=== PATIENT | female | born 1995 | race Caucasian/White ===

== ENCOUNTER 2024-03-01 11:40 | Inpatient (IN) | payer OTHER ==
[2024-03-01] VITALS (10 sets, daily range): BP systolic 96–133; BP diastolic 49–82
[~2024-03-01] VITALS: Ht 157.5 cm; Wt 92.5 kg
--- NOTE | ~2024-03-01 | DS ---
[facility] [address] [place], [place] [address] Draft ADMISSION DATE: 03/01/2024 DISCHARGE DATE: 03/06/2024 ADMISSION DIAGNOSES: Bilateral pyelonephritis, renal dysfunction, anemia, nausea, vomiting, gestational diabetes, intrauterine at 30 weeks 6 days. The patient is a 28-year-old female 1, para 0, who was admitted at 30 weeks of with general malaise and tachycardia. She was found to have acute pyelonephritis, bilateral possible left renal abscess as well as significant kidney dysfunction. Urine was consistent with pyelonephritis and she was begun on broad-spectrum antibiotics. Her white count was initially extremely high at 22,000 with a left shift. She spiked temperatures for the 1st 36 hours and vancomycin was added. She subsequently defervesced. Her pain continued to decrease overtime. She was switched to IV ceftriaxone after the final results on the urine culture came back, which was pansensitive E coli. She was initially found to have an elevated creatinine on her admission with a creatinine of 1.74, which is quite elevated for . Her lactic acid was normal and there was no evidence of sepsis. She continued to improve overtime and is discharged today on oral therapy. Her renal dysfunction improved since her admission. She was found to have a baseline creatinine of 0.99 two years ago found on old labs. She increased to a maximum of 1.83 and is now 1.59. Anemia which is stable. This is probably related to a combination of iron deficiency as well as chronic kidney disease. The patient was initially very dehydrated with nausea, vomiting, and tolerating p.o. well. It was felt this was also contributing to her pyelo as well as her tachycardia. The nausea and vomiting improved as she continued to improve otherwise. She is on Reglan q.i.d. She does have a history of insulin-dependent gestational diabetes. Her sugars in the hospital were reasonable, but she has only recently begun eating again. She had been on insulin NPH 6 units at bedtime prior to admit. This will likely need to be restarted, but this will depend on her diet. She has an IUP at 30 weeks 6 days without signs of compromise or labor. PLAN: Discharge home to complete another nine days of antibiotics, Keflex 500 mg q.i.d. for nine days and Keflex 500 mg at bedtime for the remainder of her . Check sugars q.i.d. Call for temperature greater than 100.4, worsening pain, recurrent nausea, vomiting, unresponsive to medications. Push p.o. fluids. Follow up in the office within the next week. PATIENT NAME: KYMBERLY BELTRAN DISCHARGE SUMMARY DATE OF : 95 REPORT #: [id number] PHYSICIAN: SHONDA WHITFIELD MD PCP: NO PRIMARY CARE PHYSICIAN REPORT IS CONFIDENTIAL AND NOT TO BE RELEASED WITHOUT AUTHORIZATION [facility] [address] [place], [place] [address] Draft Shonda Whitfield MD PJArden/MODL /[id number] Copies: ~ PATIENT NAME: KYMBERLY BELTRAN DISCHARGE SUMMARY DATE OF : 95 REPORT #: [id number] PHYSICIAN: SHONDA WHITFIELD MD PCP: NO PRIMARY CARE PHYSICIAN REPORT IS CONFIDENTIAL AND NOT TO BE RELEASED WITHOUT AUTHORIZATION
--- OUTSIDE RECORDS SUMMARY | ~2024-03-01 | XMS | Continuity of Care Document ---
Demographics + + + | Address | [address] | | | [place] [address] | + + + | Preferred Language | Unknown | + + + | Marital Status | unknown | + + + | Buddhist Affiliation | Unknown | + + + | Race | White | + + + | Ethnic Group | Not or | + + + Author + + + | Author | [facility] | + + + | Organization | [facility] | + + + | Address | [address] | | | [place] [address] | + + + | Phone | | + + + Care Team Providers + + + + | Care Inside Sales Manager Name | Role | Phone | + + + + Unavailable | Unavailable | + + + + Unavailable | Unavailable | + + + + Allergies No information. Encounters No information. Functional Status No information. Immunizations No information. Medications No information. Problems + + + + | date | description | facility | + + + + | 2023-12-22 00:00 | abnormal findings on | [facility] | | | screening of | [facility] | | | mother (disorder) | | + + + + | 2023-12-22 00:00 | Abnormal findings on | [facility] | | | screening | [facility] | + + + + Procedures No information. Results/Labs No information. Social History + + + + | date | description | facility | + + + + | 2024-01-05 00:00 | Tobacco smoking | [facility] | | | consumption unknown | [facility] | + + + + Vital Signs + + +---------+---------+ | date | measurement | value | units | + + +---------+---------+ | 2023-12-15 00:00 | BP_diastolic | 57 | mmHg | + + +---------+---------+ | 2023-12-15 00:00 | BP_systolic | 118 | mmHg | + + +---------+---------+ | 2023-12-15 00:00 | heart_rate | 66 | /min | + + +---------+---------+ | 2023-12-15 00:00 | o2_saturation | 99 | % | + + +---------+---------+ | 2023-12-15 00:00 | temperature_metric | 36.56 | C | | | | | | + + +---------+---------+ | 2023-12-15 00:00 | | 97.81 | F | | | temperature_standar | | | | | d | | | + + +---------+---------+ | 2023-12-15 00:00 | weight_metric | 96.84 | kg | + + +---------+---------+ | 2023-12-15 00:00 | weight_standard | 213.5 | lb | + + +---------+---------+"
[2024-03-01] MEDS ORDERED: METOCLOPRAMIDE HCL 10 MG/2 ML SDV IV ONE (12:00)
[2024-03-01 12:20] LABS: BASOPHILS 0.2 % (0-2); HEMOGLOBIN 10.7 g/dL (12.0-18.0); LYMPHOCYTES 4.9 % (24-44); MCH 27.5 (27-36); MCHC 34.4 g/dl (30-36); MONOCYTES 3.9 % (0-12); PLATELET COUNT 643 K/uL (140-440); RBC 3.88 M/ul (4.3-5.7); RDW 13.6 (10.5-15.0)
[2024-03-01] MEDS ORDERED: LACTATED RINGER'S 1,000 ML IV ONE (12:30)
[2024-03-01 12:37] LABS: ALBUMIN 1.5 g/dL (3.4-5.0); ALBUMIN/GLOBULIN RATIO 0.27 (1.1-2.4); ANION GAP 17.7 (7-21); BILIRUBIN, TOTAL 1.3 ng/dL (0.2-1.0); BUN/CREATININE RATIO 6.89 (6.0-28.6); CALCIUM 8.6 mg/dL (8.5-10.1); CREATININE, SERUM 1.74 mg/dL (0.55-1.02); POTASSIUM 2.7 mmol/L (3.5-5.1); PROTEIN, TOTAL 7.1 g/dL (6.4-8.2)
[2024-03-01 12:52] LABS: BILIRUBIN, URINE POSITIVE (negative); BLOOD/HGB, URINE SMALL (Negative); KETONE, URINE NEGATIVE (Negative); LEUK ESTERASE, URINE MODERATE (negative); NITRITE, URINE NEGATIVE (negative)
[2024-03-01 12:59] LABS: BACTERIA, URINE 2+ /hpf (negative); CASTS, URINE GRANULAR 1+ \\lpf; COLLECTION TYPE, URINE CLEAN CATCH; CRYSTALS, URINE NONE SEEN (0-1+); EPITHELIAL CELLS, URINE SQUAMOUS 1+ /lpf (0-1+); REFLEX CULTURE, URINE Yes (No); WHITE BLOOD CELLS, URINE >50 /HPF (0-5)
[2024-03-01] MEDS ORDERED: POTASSIUM CHLORIDE 20 MEQ,LIDOCAINE HCL 1% 20 MG in DEXTROSE 5% 250 ML IV ONE (13:00)
[2024-03-01] MEDS ORDERED: PIPERACILLIN/TAZOBACTAM 3.375 GM in DEXTROSE 5% 100 ML IV SCH (13:15)
[2024-03-01] MEDS ORDERED: ondansetron HCL 4 MG/2 ML VIAL IV PRN (14:00)
[2024-03-01] MEDS ORDERED: LACTATED RINGER'S 1,000 ML IV SCH (14:00)
[2024-03-01] MEDS ORDERED: PIPERACILLIN/TAZOBACTAM 2.25 GM in DEXTROSE 5% 100 ML IV SCH (14:00)
[2024-03-01] MEDS ORDERED: ACETAMINOPHEN 500 MG TAB PO PRN (14:00)
[2024-03-01 15:31] LABS: INFLUENZA B NAA NEGATIVE (NEGATIVE); RESPIRATORY SYNCYTIAL VIR NAA NEGATIVE (NEGATIVE)
[2024-03-01] MEDS ORDERED: POTASSIUM CHLORIDE 40 MEQ,LIDOCAINE HCL 1% 40 MG in DEXTROSE 5% 250 ML IV ONE (16:15)
[2024-03-01] MEDS ORDERED: POTASSIUM CHLORIDE 10 MEQ TABCR PO ONE (16:15)
--- NOTE | 2024-03-01 16:51 | NUR ---
PATIENT ADMITTED TO CCU AROUND 1515 FROM [facility] FOR PYELONEPHRITIS. PATIENT IS 30 WEEKS AND HAS BEEN HAVING COLD SYMPTOMS FOR 1-2 WEEKS NOW, WITH A COUGH, FEVER, CHILLS, LETHARGY, DIARHHEA AND VOMITING AT HOME. PT REPORTS STILL FEELING NORMAL MOVEMENT. PT TO HAVE NST Q SHIFT PER [facility] RNs. HR IN THE 120-150s, ESPECIALLY WITH ACTIVITY. PT HAS RECEIVED 2 L BOLUS AND HAS RECEIVED ZOSYN FOR AN ANTIBIOTIC. PT STILL HAVING NOTICEABLE COUGH. PT'S LYUBOV IN ROOM AND ATTENTIVE TO PATIENT. IVF STARTED AT 100 ML/HR. COVID SWAB NEG. PATIENT ORIENTED TO ROOM AND PLAN OF CARE. PT NOW RECEIVING IV POTASSIUM, IN ADDITION TO TAKING MORE ORAL POTASSIUM. WILL CONTINUE TO MONITOR.
[2024-03-01] MEDS ORDERED: ONDANSETRON ODT8 MG SL (16:54)
[2024-03-01] MEDS ORDERED: HUMULIN N100 UNIT/1 SUB-Q (16:55)
[2024-03-01] MEDS ORDERED: IBLOOD GLUCOSE TEST STRIP 1 EA TEST VI SCH (17:00)
[2024-03-01] MEDS ORDERED: INSULIN LISPRO 100 UNIT/ML ML SUB-Q SCH (17:00)
--- NOTE | 2024-03-01 18:00 | NUR ---
PATIENT TRIED ONE BITE OF HER DINNER AND ALMOST IMMEDIATELY STARTED TO VOMIT. PT'S HEART RATE UP TO THE 170 s WITH VOMITING. EMESIS =200 MLs. PT GIVEN ZOFRAN PRN. PT'S MOTHER AND REMAIN IN ROOM. IV FLUIDS CONTINUE AND IV POTASSIUM. AM LABS ORDERED.
--- NOTE | 2024-03-01 19:48 | NUR ---
IN TO CHECK ON PT AND GO OVER PLAN OF CARE FOR THE NIGHT INCLUDING NST WITH [facility] NURSE, IVF AND RECHECKING LABS IN AM. PT WILL CALL WITH ANY NEEDS, IS SIPPING ON A SMOOTHIE NOW AND DENIES NAUSEA/VOMITING. RESTING HR 130'S. SPO2 98% ON ROOM AIR.
--- NOTE | 2024-03-01 20:20 | NUR ---
IV ABX infusing WNL. Patient temp 99.2. Resting in bed, requests assistance with side lying position, pillows provided. Pt states no further needs, call light in reach.
[2024-03-01] MEDS ORDERED: MELATONIN 3 MG TAB PO PRN (21:00)
--- NOTE | 2024-03-01 21:20 | NUR ---
PT CALLS TO USE BATHROOM, SBA UP TO BATHROOM, HR UP TO 160'S, PT DENIES LIGHTHEADEDNESS OR DIZZINESS, STEADY ON FEET. WAS ABLE TO VOID THEN BACK TO BED. BLOOD SUGAR CHECKED IS 121. [facility] NURSES IN TO DO NST.
--- NOTE | 2024-03-01 21:55 | NUR ---
VS TAKEN PT WARM TO TOUCH, AXIALLARY TEMP 101.4. WILL GIVE PRN TYLENOL.
--- NOTE | 2024-03-01 23:23 | NUR ---
DR SOUSA CALLED AND UPDATED ON PTS BPS 96/52 (65). ORDER GIVEN FOR 1L LR BOLUS.
--- NOTE | 2024-03-01 23:28 | NUR ---
LR BOLUS STARTED, PT DENIES NEEDS. AWAKE IN BED, WATCHING TV. RESTING HR 120'S.
[2024-03-02] VITALS (19 sets, daily range): BP systolic 100–120; BP diastolic 47–67
--- NOTE | 2024-03-02 00:31 | NUR ---
[facility] NURSES OVER TO ASSESS PT AND HAVE HER REPOSITION. PT DENIES NEEDS.
--- NOTE | 2024-03-02 01:15 | NUR ---
[facility] NURSES OVER TO TAKE PT OF MONITOR. PT UP TO BR TO VOID, BACK TO BED. HR ONLY UP TO 140 THIS TIME WHEN UP, QUICKLY BACK DOWN TO 110 ONCE IN BED. DENIES FURTHER NEEDS, REMAINS IN ROOM WITH PT.
--- NOTE | 2024-03-02 03:14 | NUR ---
PT CALLS TO GET UP TO BATHROOM, HR TO 120'S WHILE UP, BACK TO BED, NO REQUESTS AT THIS TIME.
[2024-03-02 05:27] LABS: BASOPHILS 0.4 % (0-2); EOSINOPHILS 0.3 % (0-6); HEMATOCRIT 27.2 % (35.0-50.0); HEMOGLOBIN 9.2 g/dL (12.0-18.0); LYMPHOCYTES 6.3 % (24-44); MCH 27.4 (27-36); MCHC 33.9 g/dl (30-36); MCV 80.8 fl (81-99); MONOCYTES 5.9 % (0-12); NEUTROPHILS 87.1 % (39-80); PLATELET COUNT 515 K/uL (140-440); RBC 3.37 M/ul (4.3-5.7); RDW 13.8 (10.5-15.0)
[2024-03-02 05:38] LABS: BANDS, MANUAL DIFF 5; BASOPHILS, MANUAL DIFF 1; LYMPHOCYTES, MANUAL DIFF 8; MONOCYTES, MANUAL DIFF 4; NEUTROPHILS, MANUAL DIFF 82
--- NOTE | 2024-03-02 05:38 | NUR ---
PT UP TO BR TO VOID, BACK TO BED, HR 120'S WHILE UP. BACK TO BED, NO REQUESTS.
[2024-03-02 05:40] LABS: ALBUMIN 1.1 g/dL (3.4-5.0); ALBUMIN/GLOBULIN RATIO 0.24 (1.1-2.4); ANION GAP 16.2 (7-21); BILIRUBIN, TOTAL 1.5 ng/dL (0.2-1.0); BUN/CREATININE RATIO 5.14 (6.0-28.6); CALCIUM 8.1 mg/dL (8.5-10.1); CREATININE, SERUM 1.75 mg/dL (0.55-1.02); POTASSIUM 3.2 mmol/L (3.5-5.1); PROTEIN, TOTAL 5.6 g/dL (6.4-8.2)
--- NOTE | 2024-03-02 06:35 | NUR ---
IN TO CHECK ON PT, SHE IS COUGHING MORE THIS MORNING, WILL CALL MD. NO REQUESTS AT THIS TIME.
--- NOTE | 2024-03-02 06:52 | NUR ---
VISITED DURING SPIRITUAL CARE ROUNDS. PT IN OVERALL GOOD SPIRITS, NO VISIBLE SIGNS OF ANXIETY. SALES AND SERVICE ADVISOR PROVIDED SUPPORTIVE PRESENCE, HOSPITALITY, PRAYER, FACILITATED INTERACTION WITH VISITING THERAPY ANIMAL. PT EXPRESSED GRATITUDE, CHESTER, HOPE.
[2024-03-02] MEDS ORDERED: GUAIFENESIN/DEXTROMETHORPHAN 5 ML SYRUP PO PRN (07:00)
[2024-03-02] MEDS ORDERED: BENZONATATE 100 MG CAP PO PRN (07:00)
--- NOTE | 2024-03-02 07:33 | NUR ---
REPORT REC'D FROM JOHNNY LANCASTER AND PLAN OF CARE RESUMES. IV POTASSIUM ORDERED FOR REPLACEMENT. HR IN THE 90s CURRENTLY AND LAST BP 101/62.
[2024-03-02] MEDS ORDERED: POTASSIUM CHLORIDE 40 MEQ,LIDOCAINE HCL 1% 40 MG in DEXTROSE 5% 250 ML IV ONE (09:00)
[2024-03-02] MEDS ORDERED: POTASSIUM CHLORIDE 40 MEQ in DEXTROSE 5% 250 ML IV ONE (09:00)
--- NOTE | 2024-03-02 09:18 | NUR ---
UR CLINICAL REVIEW: [facility] OBS AND INPATIENT CRITERIA. WILL UPDATE MD MA GROUP ADMIN OBS 03/01/24 @ 1141 ORDER MATCHES REG NO AUTH REQUIRED FOR OBS VISIT. DISCHARGE TO HOME WHEN STABLE 03/03/24
--- NOTE | 2024-03-02 09:42 | NUR ---
DR. MCINTOSH IN TO SEE PATIENT AND DISCUSS PLAN OF CARE. HR IN THE 110-120s STILL AND PATIENT FEELS WARM TO TOUCH, BUT TEMP IS STILL 98.4. SCDs ADDED PER DR. MCINTOSH, WELL RECOMMENDATION TO GIVE ZOFRAN MORE FREQUENTLY TO HELP WITH NAUSEA. PT UP TO BATHROOM AND VOIDS AND HAS SMALL AMOUNT OF DIARRHEA. DISCUSSED WITH PATIENT THE NEED TO CONTINUE TO MONITOR URINE OUTPUT AND THE NEED FOR THE HAT TO STAY IN TOILET-PT UNDERSTANDS AND AGREEABLE. PT'S PEPE MCARTHUR RETURNS FOR THE DAY. PT HAS BEEN ABLE TO KEEP SOME BITES OF EGG DOWN. WILL CONTINUE TO MONITOR.
[2024-03-02] MEDS ORDERED: ondansetron HCL 4 MG/2 ML VIAL IV SCH (09:45)
--- NOTE | 2024-03-02 10:00 | NUR ---
PATIENT ALERT AND ORIENTED IN BED. SIGNIFICANT OTHER AT BEDSIDE. PATIENT LIVES IN SINGLE LEVEL HOUSE, BUT DOES HAVE STEPS TO GET INSIDE. STATES SHE HAS NO DME. SHE DRIVES AT BASELINE. BOTH PATIENT AND SIGNIFICANT OTHER DENY FINANCIAL ISSUES. STATES SHE HAS NO NEEDS AT THIS TIME. WILL NOTIFY STAFF WITH CHANGES. PHYSICAL ADDRESS HAS CHANGED TO [address] [place] [address] IN [place] AND HER PCP IS FINN ARROYO PA-C. REGISTRATION NOTIFIED OF UPDATES.
--- NOTE | 2024-03-02 10:10 | NUR ---
KENYA. PATIENT RECEIVED 4 MG OF ZOFRAN AT 0924. NOTIFED, HE ASK THAT DR. MCINTOSH GIVE FUTHER ORDERS FOR NAUSEA MED.
--- NOTE | 2024-03-02 10:15 | NUR ---
DR. MCINTOSH'S OFFICE NOTIFIED OF N/V. DR. MCINTOSH NOT AVAILBLE AT THIS TIME. MESSAGE LEFT WITH VICE PRESIDENT BIOSTATISTICS.
--- NOTE | 2024-03-02 10:25 | NUR ---
ZOFRAN 4 MG IV REPEATED FOR TOTAL DOSE OF 8 MG.
[2024-03-02] MEDS ORDERED: METOCLOPRAMIDE HCL 10 MG/2 ML SDV IV PRN (10:45)
--- NOTE | 2024-03-02 10:50 | NUR ---
DR. SOUSA IN TO SEE PATIENT AND DISCUSS PLAN OF CARE.
[2024-03-02] MEDS ORDERED: PEPCID AC20 MG PO (11:22)
--- NOTE | 2024-03-02 11:23 | NUR ---
MED REC COMPLETE
[2024-03-02] MEDS ORDERED: PHARMACY RENAL DOSE ADJUSTMENT 1 DOSE MISC PO SCH (12:00)
--- NOTE | 2024-03-02 12:03 | NUR ---
PATIENT HAVING NST AT THIS TIME IN ROOM. PT UP TO BATHROOM TO VOID AND VOIDED 300ML. URINE STILL REMAINS CONCENTRATED BUT LESS CLOUDY THAN YESTERDAY. PT'S MOTHER AND AUNT ARE IN ROOM AT THIS TIME. BP AT NOON 108/61. HR REMAINS IN THE 120s.
[2024-03-02] MEDS ORDERED: PIPERACILLIN/TAZOBACTAM 3.375 GM in DEXTROSE 5% 100 ML IV SCH (14:00)
[2024-03-02] MEDS ORDERED: FAMOTIDINE 20 MG TAB PO SCH (14:59)
--- NOTE | 2024-03-02 16:50 | NUR ---
WOKE PATIENT FOR ACCUCHECK, ACCUCHECK-412. DR. SOUSA NOTIFIED. ORDERS RECEIVED TO GIVE ROUTINE 11 UNITS LISPRO PER SS AND DC IVF. THIS DONE. UP TO BR TO VOID 950 ML YELLOW URINE. BACK TO BED W/O INCIDENT.
--- NOTE | 2024-03-02 17:16 | NUR ---
PATIENT RESTING IN BED WITH DINNER TRAY AT BEDSIDE. PT'S MOTHER AND FATHER HAVE LEFT FROM VISITING AND HER FIANCE REMAINS IN ROOM. PT UP TO BATHROOM AGAIN TO VOID. URINE REMAINS CONCENTRATED AND USUALLY ABOUT 200-300 ML PER VOID. HEATING PAD OFFERED AND IN PLACE FOR PATIENT'S LOW BACK PAIN, WHICH SHE IS RATING A 4/10. PT DENIES WANTING ANY TYLENOL FOR THIS AT THIS TIME. PT HAS SCHEDULED ZOFRAN COMING UP AT 1745.
--- NOTE | 2024-03-02 18:10 | NUR ---
PATIENT'S TEMP AXILLARY UP TO 102.6. PT'S HEART RATE 130s NOW. DR. SOUSA CALLED AND NOTIFIED OF TEMP. ORDER REC'D TO GET BLOOD CULTURES AND CONTINUE TO MONITOR. PT WAS ABLE TO EAT ABOUT 25% OF HER DINNER TONIGHT.
[2024-03-02] MEDS ORDERED: VANCOMYCIN PER PHARMACY PROTOCOL IV SCH (18:16)
--- NOTE | 2024-03-02 18:22 | NUR ---
BLOOD CULTURES DRAWN PER LAB. PT TOLERATED FAIR. TYLENOL GIVEN PER EMAR.
--- NOTE | 2024-03-02 18:25 | NUR ---
DR. MCINTOSH CALLED TO NOTIFY OF RECENT TMAX OF 102.6 AND THAT VANCO TO BE STARTED. PATIENT AND FIANCE UPDATED ON PLAN FOR ADDITIONAL ANTIBIOTICS.
[2024-03-02] MEDS ORDERED: VANCOMYCIN HCL 2,000 MG in SODIUM CHLORIDE 0.9% 500 ML IV ONE (18:45)
--- NOTE | 2024-03-02 20:30 | NUR ---
KYMBERLY IS NOTED TO BE RESTING IN BED WITH EYES OPEN. SHE IS ENJOYING A MOVIE ON THE TELEVISION. KYMBERLY ENDORSES COMFORT AND DENIES ANY NEEDS AT THIS TIME. VSS AND CBG COMPLETED. 104/51(64), HR 101, 95% O2. ABLE TO MOVE ALL EXTREMTIIES WITH EQUAL STRENGHT. SCDS PRESENT AND IN USE. L PIV X 2. LR GTT AT 100 AND VANCOMYCIN 2G AT 270CC PER HR. S1/S2 HEART SOUNDS PRESENT, BOWEL TONES AUSCULTATED IN ALL 4 QUADRANTS, CLEAR BREATH SOUNDS THROUGHOUT, COUGH IS MINIMAL NST TO BE PERFORMED BY MOM/BABY DEPARTMENT
--- NOTE | 2024-03-02 21:31 | NUR ---
AMBULATED TO RESTROOM WITH STANDBY ASSIST FOR CORD CARE BEFORE NST. MOM/BABY RN IN ROOM WITH KYMBERLY CURRENTLY.
--- NOTE | 2024-03-02 22:43 | NUR ---
RESTING IN BED WITH EYES CLOSED. SHABNAM (PARTNER) AT BEDSIDE. NO NEEDS IDENTIFIED AT THIS TIME. SAFETY CHECK OF ROOM PERFORMED. ZOSYN GTT INFUSING
--- NOTE | 2024-03-02 23:50 | NUR ---
INDEPENDENT AMBULATION TO RESTROOM. VSS WDL PER MONITOR. WARM BLAKET PROVIDED PER PATIENT REQUEST. KYMBERLY DENIES ANY PAIN OR DISCOMFORT. RESTING WITH EYES CLOSED. PARTNER LYUBOV REMAINS AT BEDSIDE. NO NEEDS IDENTIFIED AT THIS TIME
[2024-03-03] VITALS (11 sets, daily range): BP systolic 100–115; BP diastolic 48–71
--- NOTE | 2024-03-03 02:26 | NUR ---
INDEPENDENT AMBULATION TO RESTROOM. KYMBERLY IS BACK IN BED AND DENIES ANY PAIN OR DISCOMFORT. SHE HAS RESTED WELL. SCHEDULED ONDANSETRON ADMINISTERED IV. NO NAUSEA REPORTED
--- NOTE | 2024-03-03 02:43 | NUR ---
COUGHING NOTED. PRN GUAIFENESIN/DEXTROMETHORPHAN GIVEN. KYMBERLY IS NOW RESTING IN BED. PAIN IS 2/10 WHEN COUGHING
--- NOTE | 2024-03-03 04:18 | NUR ---
KYMBERLY CALLED TO REPORT RESTROOM NEEDS. INDEPENDENT AMBULATION TO RESTROOM. SHE CONTINUES TO ENDORSE COMFORT. PRN COUGH MEDICINE EFFECTIVE COUGHING HAS DRASTICALLY DECREASED. LR 100 GTT
[2024-03-03 05:42] LABS: BASOPHILS 0.2 % (0-2); EOSINOPHILS 0.3 % (0-6); HEMATOCRIT 26.5 % (35.0-50.0); HEMOGLOBIN 9.2 g/dL (12.0-18.0); LYMPHOCYTES 8.3 % (24-44); MCH 27.8 (27-36); MCHC 34.7 g/dl (30-36); MCV 80.3 fl (81-99); NEUTROPHILS 86.2 % (39-80); PLATELET COUNT 461 K/uL (140-440); RDW 13.9 (10.5-15.0)
[2024-03-03 05:55] LABS: ALBUMIN/GLOBULIN RATIO 0.23 (1.1-2.4); ANION GAP 13.2 (7-21); BUN/CREATININE RATIO 5.05 (6.0-28.6); CALCIUM 8.5 mg/dL (8.5-10.1); CREATININE, SERUM 1.78 mg/dL (0.55-1.02); MAGNESIUM 1.7 mg/dL (1.8-2.4); POTASSIUM 3.2 mmol/L (3.5-5.1); PROTEIN, TOTAL 5.3 g/dL (6.4-8.2)
--- NOTE | 2024-03-03 06:49 | NUR ---
INDEPENDENT AMBULATION TO THE RESTROOM. BACK IN BED WATCHING TELEVISION. DENIES ANY NEEDS
--- NOTE | 2024-03-03 07:52 | NUR ---
UR CONCURRENT CLINICAL REVIEW: [facility] OBS AND INPATIENT CRITERIA. Will notify of inpt criteria met. OBS 03/01/24 @ 1141 ORDER MATCHES REG NO AUTH REQUIRED FOR OBS VISIT. DISCHARGE TO HOME WHEN STABLE 03/04/24
--- NOTE | 2024-03-03 08:00 | NUR ---
IN TO DO MORNING ASSESSMENT. PT UP AND AMBULATING, MILD TACHYCARDIA IN THE 110S NOTED, PT DENIES PAIN, BLURRED VISION, HEADACHES, AND CURRENT NAUSEA. STATES BABY IS MOVING LIKE NORMAL AND SHE FELT THE OCCASIONAL CONTRACTION LAST NIGHT, DEINES ANY FLUID LEAKAGE OR VAGINAL DISCHARGE. ASSESSMENT COMPLETED, URINE MEASURED, BLOOD SUGAR CHECKED, BREAKFAST BROUGHT, CALL LIGHT WITHIN REACH
--- NOTE | 2024-03-03 08:39 | NUR ---
PT CALLED DUE TO VOMITTING. STATES SHE THINKS IT WAS THE ORANGES THAT MADE HER NAUSEAS. PRN REGLAN GIVEN DUE TO ZOFRAN UNAVAILABLE AT THIS TIME ALONG WITH PRN COUGH SYRUP. VOMITTED APROX 200 ML OF EMESIS.
--- NOTE | 2024-03-03 08:40 | HP ---
[facility] [address] [place], [place] [address] Signed ADMISSION DATE: 03/01/2024 HISTORY OF PRESENT ILLNESS: The patient is a 28-year-old female, 1, para 0, with an EDC of 05/08/2024, now at 30 weeks two days, who was seen in the office today and was found to be quite ill, brought to the Center for evaluation. She has been sick with nausea, vomiting, diarrhea since approximately February 09. This then turned to a cough and congestion approximately six days later. Since then she has continued to have a cough and more recently recurrent nausea and vomiting. She has kept little down over the last few days. She has felt hot and cold, but has not checked the temp. Her is uncomplicated by: 1. Obesity, though she has had a recent weight loss of 10 pounds over the last two weeks. 2. UTI in the 1st trimester. E coli navarro-sensitive treated with Macrobid. 3. GDM, recently started on NPH insulin at bedtime. 4. Abnormal genetic screen without any results on cell free DNA x2. Her ultrasound was normal and she and her partner declined any further testing. PAST MEDICAL HISTORY/SURGERIES: [place] teeth. ILLNESSES: Positive for anxiety untreated. Negative for hypertension, heart problems as well. Liver and kidney problems, migraines. MEDICATIONS: vitamins. NPH insulin 6 units at bedtime. ALLERGIES: No known allergies. LABS: O positive. Maternal antibody screen negative. Rubella immune. HIV nonreactive. Hepatitis B surface antigen negative. Anti HCV nonreactive. FTA nonreactive. One hour GTT was 150. 3 hour cancelled as her fasting was 131-140. PHYSICAL EXAMINATION: VITAL SIGNS: Blood pressure is 116/65, pulse 122, O2 saturation 94%, temp 99. GENERAL: She is a well-developed, well-nourished female, who is pale, no obvious distress, but appears ill. LUNGS: Clear. HEART: Regular rate and rhythm. No murmur, but she is tachycardic. Electronically Signed By: SHONDA WHITFIELD MD 03/03/24 0840 PATIENT NAME: KYMBERLY BELTRAN HISTORY AND PHYSICAL DATE OF : [birth year] REPORT #: [id number] PHYSICIAN: SHONDA WHITFIELD MD PCP: NO PRIMARY CARE PHYSICIAN REPORT IS CONFIDENTIAL AND NOT TO BE RELEASED WITHOUT AUTHORIZATION [facility] [address] [place], [place] [address] Signed ABDOMEN: Gravid, soft, nontender. She did have right CVA tenderness. NST was reactive without any contractions. LABORATORY DATA: H and H 10.7, 31, white count 26.6 with a left shift, platelets 643,000. Sodium 138, potassium 2.7, chloride 96, CO2 19, BUN and creatinine 12/1.74, glucose 133. Lactic acid 1.5. UA consistent with UTI. IMPRESSION: IUP at 30 weeks two days. Pyelonephritis. Will start antibiotics. Nausea and vomiting w/ dehydration. Acute kidney injury probably secondary to dehydration. Hypokalemia secondary to her nausea and vomiting. PLAN: Begin IV antibiotics. Aggressive hydration Potassium replacement Hospitalist consult. Shonda Whitfield MD PJW/MODL /[id number] Copies: ~ Electronically Signed By: SHONDA WHITFIELD MD 03/03/24 0840 PATIENT NAME: KYMBERLY BELTRAN HISTORY AND PHYSICAL DATE OF : [birth year] REPORT #: [id number] PHYSICIAN: SHONDA WHITFIELD MD PCP: NO PRIMARY CARE PHYSICIAN REPORT IS CONFIDENTIAL AND NOT TO BE RELEASED WITHOUT AUTHORIZATION
--- NOTE | 2024-03-03 09:39 | NUR ---
[facility] RN IN TO COMPLETE NST
--- NOTE | 2024-03-03 09:45 | NUR ---
SPOKE WITH DR SOUSA REGARDING CONCERN FOR PT'S COUGH AND SYMPTOMS, ASKED ABOUT IF AN ECHO HAS BEEN CONSIDERED TO RULE OUT OTHER DISEASE PROCESSES. PER DR SOUSA ECHO IS NOT INDICATED AT THIS TIME, PT'S ASSESSMENT SHOWS NO HEART MURMUR, NO LESIONS ON HANDS, AND FINGER NAILS APPEAR NORMAL.
--- NOTE | 2024-03-03 10:07 | NUR ---
PT NOT AVAILABLE FOR VISIT. PROVIDED PRAYER.
--- NOTE | 2024-03-03 10:11 | NUR ---
NST COMPLETED, PER [facility] RN GOOD VARRIABILITY AND ACCELERATIONS NOTED
--- NOTE | 2024-03-03 10:35 | NUR ---
IN TO GIVE MEDICATIONS PER EMAR, PT REQUESTED TO USE RESTROOM. ASSISTED TO RESTROOM ON CARDIAC MONTIOR. PT VOIDED 225 ML OF URINE, DENIES FLANK PAIN OR BURNING WITH URINATION. ASSISTED PT BACK TO BED, IN POSITION OF COMFORT, CALL LIGHT WITHIN REACH
--- NOTE | 2024-03-03 10:44 | NUR ---
SPOKE WITH DR. JAGOO. QUINTEROS TO CHANGE PATIENT TO INPATIENT STATUS.
--- NOTE | 2024-03-03 10:46 | NUR ---
UR CONCURRENT CLINICAL REVIEW: [facility] INPATIENT, PHYSICIAN REQUESTS CHANGE TO INPT FROM ADMIT TIME, WAS UNAWARE OF OBS STATUS FROM OBS TO INPT 03/01/24 @ 1400 ORDER MATCHES REG NO AUTH REQUIRED FOR OBS VISIT. DISCHARGE TO HOME WHEN STABLE 03/07/24
--- NOTE | 2024-03-03 11:19 | NUR ---
RIYA FROM [facility] IN WITH PT
--- NOTE | 2024-03-03 12:06 | NUR ---
IN WITH PT TO PROVIDE LUNCH AND CHECK BLOOD SUGAR, CBG WNL, NO INSULIN COVERAGE REQUIRED, PT DENIES FURTHER NEEDS
--- NOTE | 2024-03-03 12:30 | NUR ---
PT CALLED DUE TO LEFT HAND SWELLING. IV INFUSION STOPPED, L WRIST IV REMOVED, DR SOUSA NOTIFIED. STATED TO APPLY ICE PACK UNTIL HE CAN COME ASSESS. HAND MEASURES AT 8 3/4 INCHES AND FOREARM MEASURES AT 9 3/4 INCHES DIAMETER. AREAS WHERE MEASUREMENTS TAKEN MARKED WITH SKIN MARKER
--- NOTE | 2024-03-03 13:15 | NUR ---
DR. SOUSA IN PT ROOM TO ASSESS ARM DUE TO DIFFUSED SWELLING ON LOWER LEFT ARM. ASKED FOR ORDER FOR ELECTROLYTE REPLACEMENTS AND INFORMED OF PT HR CONTINUING TO RAISE FROM 90S TO 120S WHILE RESTING IN BED.
[2024-03-03] MEDS ORDERED: POTASSIUM CHLORIDE 10 MEQ TABCR PO SCH (13:30)
[2024-03-03] MEDS ORDERED: MAGNESIUM OXIDE 400 MG TABLET PO ONE (13:45)
--- NOTE | 2024-03-03 13:55 | NUR ---
ASSISTED PT TO RESTROOM, HEART RATE IN HIGH 140S DURING AMBULATION, MD AWARE. ASSISTED PT IN POSITION OF COMFORT IN BED, NO CURRENT NEEDS. CALL LIGHT WITHIN REACH
--- NOTE | 2024-03-03 15:40 | NUR ---
IN WITH PT TO COLLECT LABS FROM NEW IV START.
[2024-03-03] MEDS ORDERED: VANCOMYCIN HCL 1,250 MG in DEXTROSE 5% 250 ML IV SCH (16:44)
--- NOTE | 2024-03-03 17:36 | EKG ---
[facility] [address] [facility] [place], [place] [address] Signed Sinus tachycardia Otherwise normal ECG No previous ECGs available Confirmed by Raz Sousa MD ([id number]) on 03/03/2024 5:36:19 PM Electronically Signed By: RAZ SOUSA DO 03/03/24 1736 PATIENT NAME: KYMBERLY BELTRAN Electrocardiogram DATE OF : [birth year] PHYSICIAN: RAZ SOUSA DO REPORT #: [id number] REPORT IS CONFIDENTIAL AND NOT TO BE RELEASED WITHOUT AUTHORIZATION
--- NOTE | 2024-03-03 20:01 | NUR ---
SBAR REPORT RECEIVED FROM JOHNNY GOLDBERG. ALL EVENTS OF THE DAY WERE DISCUSSED AND PLAN OF CARE REVIEWED. CARE ASSUMED BY THIS RN. KYMBERLY CALLED TO REPORT RESTROOM NEEDS. INDEPENDENT AMBULATION TO RESTROOM. TACHYCARDIA NOTED IN 120'S. VANCOMYCIN GTT ALMOST COMPLETED. LR AT 100 ACTIVE. BILATERAL PIV FLUSHED WELL. SITE WDL. SCDS PLACED AND IN USE. KYMBERLY DENIES ANY OTHER DISCOMFORT AT THIS TIME
[2024-03-03] MEDS ORDERED: FAMOTIDINE 20 MG TAB PO SCH (21:00)
[2024-03-03 21:24] LABS: ALBUMIN/GLOBULIN RATIO 0.24 (1.1-2.4); ANION GAP 15.6 (7-21); BILIRUBIN, TOTAL 0.9 ng/dL (0.2-1.0); BUN/CREATININE RATIO 7.1 (6.0-28.6); CALCIUM 7.8 mg/dL (8.5-10.1); CREATININE, SERUM 1.83 mg/dL (0.55-1.02); POTASSIUM 3.6 mmol/L (3.5-5.1); PROTEIN, TOTAL 5.2 g/dL (6.4-8.2)
--- NOTE | 2024-03-03 21:32 | NUR ---
PATIENT KYMBERLY CALLED AND REPORTED RESTROOM NEEDS. INDEPENDENT AMBULATION TO THE RESTROOM. SMALL STOOL NOTED. BACK IN BED WITH WARM BLAKETS PROVIDED. NO OTHER NEEDS AT THIS TIME
--- NOTE | 2024-03-03 22:08 | NUR ---
MD SOUSA UPDATED REGARDING CREATININE INCREASE OF 1.83. KYMBERLY CONTINUES TO VOID, REPORTS NO PAIN OR DISCOMFORT, AFEBRILE, WITH SLIGHT HYPOTENSION 106/45 (65). PLAN IS TO REDRAW LABS IN THE AM AND SEE WHAT THE CREATININE SERUM LEVEL IS THEN.
--- NOTE | 2024-03-03 23:24 | NUR ---
INDEPENDENT AMBULATION TO THE RESTROOM. PARTNER LYUBOV IN ROOM WITH KYMBERLY. BARRIER CREAM AND WET WIPES PROVIDED AFTER THIS RN QUESTIONED IF HER SKIN WAS FEELING TENDER. SHE ANSWERED AFFIRMITIVE AND WAS APPRECIATIVE OF THE CARE.
[2024-03-04] VITALS (12 sets, daily range): BP systolic 99–110; BP diastolic 50–64
--- NOTE | 2024-03-04 00:51 | NUR ---
KYMBERLY IS RESTING WITH EYES CLOSED. PERSONAL ITEMS AND CALL LIGHT WITHIN REACH. SAFETY CHECK OF ROOM PERFORMED. NO NEEDS IDENTIFIED AT THIS TIME.
--- NOTE | 2024-03-04 01:50 | NUR ---
PT CALLS FOR ASSISTANCE UP TO BATHROOM, IN TO BATHROOM TO VOID ONLY NO STOOL AND BACK TO BED. HR REMAINED 105-110 WHILE UP. ZOFRAN GIVEN PER EMAR, NO REQUESTS AT THIS TIME.
--- NOTE | 2024-03-04 02:34 | NUR ---
RESTING WITH EYES CLOSED. EASILY AROUSED TO SLIGHT NOISE. DENIES ANY NEEDS AT THIS TIME. VSS PER MONITOR
--- NOTE | 2024-03-04 04:25 | NUR ---
KYMBERLY USED CALL LIGHT TO REPORT RESTROOM NEEDS. INDEPENDENT AMBULATION TO RESTROOM. REASSESSMENT OF LEFT AC LDA. SLIGHT LEAKAGE FROM BENDING ARM. FLUSHES WELL WITH NO TENDERNESS OR PAIN. RETAPED. 400CC OF CLOUDY URINE. NEW BAG OF LR AT 100CC PER HOUR BACK IN BED. NO ADDITIONAL NEEDS THIS AT THIS TIME
[2024-03-04 05:26] LABS: BASOPHILS 0.3 % (0-2); HEMATOCRIT 25.8 % (35.0-50.0); HEMOGLOBIN 8.7 g/dL (12.0-18.0); LYMPHOCYTES 13.3 % (24-44); MCH 27.4 (27-36); MCHC 33.8 g/dl (30-36); MCV 81.1 fl (81-99); MONOCYTES 6.2 % (0-12); NEUTROPHILS 79.2 % (39-80); PLATELET COUNT 461 K/uL (140-440); RBC 3.18 M/ul (4.3-5.7); RDW 13.8 (10.5-15.0)
[2024-03-04 05:34] LABS: ANION GAP 14.3 (7-21); BUN/CREATININE RATIO 5.18 (6.0-28.6); CREATININE, SERUM 1.93 mg/dL (0.55-1.02); MAGNESIUM 1.4 mg/dL (1.8-2.4); POTASSIUM 3.3 mmol/L (3.5-5.1)
[2024-03-04] MEDS ORDERED: POTASSIUM CHLORIDE 10 MEQ TABCR PO ONE (06:45)
[2024-03-04] MEDS ORDERED: MAGNESIUM SULFATE 2 GM/50 ML BAG IV SCH ×2 (06:45→09:30)
--- NOTE | 2024-03-04 06:52 | NUR ---
INDEPENDENT AMBULATION TO THE RESTROOM. 300CC VOIDED. ABNORMAL LABS THIS AM K-3.3 MG- 1.4 SERUM CREAT- 1.93 GFR- 36 ELECTROLYTE REPLACEMENT ORDERS PLACED. AWAITING PHARMACY
--- NOTE | 2024-03-04 07:30 | NUR ---
REPORT RECIEVED FROM VALVE GRINDER RN. PATIENT RESTING IN BED. PATIENT CALLS APPROPRIATELY AND DENIES ANY NEEDS AT THIS TIME.
[2024-03-04] MEDS ORDERED: ELECTROLTYTE REPLACEMEMT CCU 1 EACH EA PO/IV SCH (09:00)
[2024-03-04] MEDS ORDERED: POTASSIUM REPLACEMENT PROTOCOL ORAL/IV PO/IV SCH (09:00)
[2024-03-04] MEDS ORDERED: MAGNESIUM REPLACEMENT PROTOCOL ORAL/IV PO/IV SCH (09:00)
--- NOTE | 2024-03-04 09:20 | NUR ---
MD IN TO VISIT WITH PATIENT ABOUT PLAN OF CARE. WITH PATIENTS KIDNEY LABS CONTINUEING TO WORSEN. MD WOULD LIKE TO TRANSFER PATIENT FOR HIGHER LVELE OF CARE AND FOLLOW-UP. PATIENT IS AGREEABLE TO PLAN OF CARE. PATIENT ASKING QUESTIONS AND INVOLOVED IN HER CARES. PATIENT DENIES ANY NEEDS AT THIS TIME. PATIENT WORKING ON EATING HER BREAFAST, BUT IS VERY SLOW AT EATING BECAUSE SHE IS WORRIED ABOUT VOMITING. PATIENT REPORTS MILD NAUSEA. WILL GIVE SCHEDULED MEDS FOR NAUSEA. SEE EMAR.
--- NOTE | 2024-03-04 09:25 | NUR ---
RECEIVED CALL FROM Alex BAILEY RN. STATES PATIENT CONCERNED ABOUT COSTS OF HOSPITAL STAY AND POTENTIAL TRANSFER. FINANCIAL ASSISTANCE PACKET PROVIDED TO PATIENT. STATES SHE HAS SIGNED UP FOR [employer]. DENIES OTHER NEEDS AT THIS TIME.
--- NOTE | 2024-03-04 09:52 | NUR ---
PATIENT RESTING IN BED. APTIENTS SIGNIFICANT OTHER LEFT TO WORK. PATIENT IS AGREEABLE TO PLAN OF CARE. CASE MANAGEMENT WAS IN TO DISCUSS FINCAL SUPPORT D/T PATIENT WORRING ABOUT COSTS AND ASKING STAFF QUESTIONS.
--- NOTE | 2024-03-04 10:44 | NUR ---
ARNALDO IN AT THE BEDSIDE TO DO ASSESSMENT AND REVIEW PLAN OF CARE WITH PATIENT. ARNALDO AWAITING SENSITIVITY RESULTS FOR UA RESULTS. MD WILL GO TALK WITH MERRY AND MAKE PLAN OF CARE FOR PATIENT AND POTENTIAL FOR TRANSFER TO HIGHER LEVEL OF CARE.
--- NOTE | 2024-03-04 11:15 | NUR ---
JAGOO IN TO REVIEW MICROBILOGY LABS FOR UA CULTURE. JERROD GRIJALVA CONTINUE COARSE WITH SAME ABX SINCE IS ALSO TREATING THE ABCESS IN PATIENTS KIDNEYS. WILL SEND STOOL SAMPLE TO RULE OUT C.DIFF. KACY DE LUNA FOR ABD ULTRASOUND. PATIENT NPO SINCE 1044 AND WILL NEED TO WAIT 6 HRS. PER WILL HOLD OFF ON TRANSFER AT THIS TIME AND MONITOR LABS. PATIENTS MOTHER IS AT THE BEDSIDE. ALL QUESTIONS ANSWERED. CALL LIGHT IN REACH AND PATIENT CALLS APPROPRIATELY.
[2024-03-04] MEDS ORDERED: PHARMACY RENAL DOSE ADJUSTMENT 1 DOSE MISC PO SCH (12:00)
--- NOTE | 2024-03-04 12:21 | NUR ---
THIS RN CHECKED IN WITH FBC TO SEE WHEN NEXT NST WOULD BE. PATIENT WILL BE GETTING AN ABD ULTRASOUND AT 1645 TIME FRAME.
--- NOTE | 2024-03-04 14:45 | NUR ---
PATIENT UP AND INTO SHOWER AFTER SETTING IT UP FOR HER AND COVERING BOTH IVS. PATIENT ABLE TO PROVIDE HER CARES AND ASKED TO SHOWER ON HER OWN. PATIENT ON HEART MONITOR AT THIS TIME AND WITH ACTIVITY WAS NOTED TO HAVE A HR 150'S. PATIENT DENIED FEELING DIZZY OR SOB. PATIENT NOW BACK TO BED. PATIENTS MOM AT THE BEDSIDE AND BRAIDED HER HAIR FOR HER. PATIENTS HR BACK TO 110'S AFTER SITTING DOWN. PATIENT DENIES ANY OTHER NEEDS AT THIS TIME AND REPORTS FEELING TIRED AT THIS TIME. CALL LIGHT IN REACH. PATIENT CALLS APPRPRIATELY.
--- NOTE | 2024-03-04 15:00 | NUR ---
FBC RN WILL BE IN TO DO NST. PATIENT RESTING IN BED.
--- NOTE | 2024-03-04 17:28 | NUR ---
GUM ROLLING MACHINE OPERATOR DONE AT THIS TIME. WILL DO PATIENT BLOOD SUGAR AND GET PATIENT WATER AND DINNER.
--- NOTE | 2024-03-04 18:57 | NUR ---
PATIENT ASKING ABOUT RESULTS OF IMAGING. PATIENT UPDATED THEY ARE BACK AND MD WILL REVIEW AND COME UPDATE PATIENT.
--- NOTE | 2024-03-04 19:30 | NUR ---
REPORT RECEIVED FROM DAY SHIFT RN. PATIENT RESTING IN BED WITH FIANCE AT BEDSIDE. DENIES ANY NEEDS AT THIS TIME CALL LIGHT WITHIN REACH.
--- NOTE | 2024-03-04 20:41 | NUR ---
PATIENT RESTING IN BED ALERT AND ORIENTED TO PERSON, PLACE, TIME AND LOCATION. PATIENT DENIES ANY PAIN AT THIS TIME. DENIES ANY DYSURIA. DENIES NEED TO VOID AT THIS TIME. LUNGS CTA. BOWEL TONES PRESENT X 4 QUADRANTS. HR NOTED IN LOWER 100S AT THIS TIME. EDEMA NOTED IN BILATERAL LOWER EXTERMITIES. PEDAL PULSES STRONG. AFEBRILE AT THIS TIME. HS BS TAKEN, HS MEDICATION ADMINSTERED. FBC NURSE IN ROOM TO COMPLETE NST. NO FURTHER NEEDS AT THIS TIME. CALL LIGHT WITHIN REACH. FIANCE AT BEDSIDE.
--- NOTE | 2024-03-04 22:00 | NUR ---
INDEPENDENT AMBULATION TO BATHROOM. TOLLERATED WELL. NOTED THAT PATIENT'S HR BECOMES INCREASED TO UPPER 120'S WITH INCREASED ACTIVITY. PATIENT DENIES ANY CHEST PAIN OR DIZZYNES WITH INCREASED ACTIVITY. VOID OF 350ML, DENIES ANY DYSURIA. URINE CONCERNTRATED IN COLOR. BEDDING CHANGED. PATIENT BACK IN BED. IV ABX HUNG. IV SITES WNL. NO FURTHER NEEDS AT THIS TIME. CALL LIGHT WITHIN REACH.
--- NOTE | 2024-03-04 23:45 | NUR ---
CALL LIGHT ANSWERED. PATIENT AMBULATED TO BATHROOM. TOLLERATED WELL. URINE CONCENTRATED IN COLOR AND CLOUDY. DENEIS ANY DYSURIA. DENIES ANY NAUSEA, PAIN OR DISCOMFORT AT THIS TIME. VSS. IV SITES REMAIN WNL. NO FURTHER NEEDS. CALL LIGHT WITHIN REACH.
[2024-03-05] VITALS (16 sets, daily range): BP systolic 92–124; BP diastolic 53–66
--- NOTE | 2024-03-05 01:24 | NUR ---
CALL LIGHT ANSWERED. PATIENT UP TO BATHROOM. TOLLERATED WELL. VOIDED 400MLS OF DARK YELLOW CLOUDY URINE. DENIES ANY PAIN OR DISCOMFORT AT THIS TIME. PATIENT BACK IN BED. VSS. CALL LIGHT WITHIN REACH.
--- NOTE | 2024-03-05 02:29 | NUR ---
SCHEDULED MEDICATIONS ADMINSTERED SEE MAR. PATIENT DENIES ANY NEEDS AT THIS TIME. CALL LIGHT WITHIN REACH.
--- NOTE | 2024-03-05 04:06 | NUR ---
CALL LIGHT ANSWERED. PATIENT AMBULATED TO BATHROOM INDEPENDENTLY WITH NO ISSUE SOR CONCERNS. NOTED TACHY HR WITH INCREASED ACTIVETY 119 HIGHEST NOTED RATE. PATIENT BACK IN BED. DENIES ANY PAIN OR DISCOMFORT. CALL LIGHT WITHIN REACH.
[2024-03-05 05:26] LABS: BASOPHILS 0.5 % (0-2); EOSINOPHILS 0.8 % (0-6); HEMATOCRIT 26.1 % (35.0-50.0); HEMOGLOBIN 8.8 g/dL (12.0-18.0); LYMPHOCYTES 14.3 % (24-44); MCH 27.7 (27-36); MCHC 33.8 g/dl (30-36); MCV 81.8 fl (81-99); MONOCYTES 5.9 % (0-12); NEUTROPHILS 78.5 % (39-80); PLATELET COUNT 459 K/uL (140-440)
[2024-03-05 05:33] LABS: ANION GAP 14.4 (7-21); BUN/CREATININE RATIO 4.91 (6.0-28.6); CALCIUM 8.3 mg/dL (8.5-10.1); CREATININE, SERUM 1.83 mg/dL (0.55-1.02); MAGNESIUM 1.9 mg/dL (1.8-2.4); POTASSIUM 3.4 mmol/L (3.5-5.1)
--- NOTE | 2024-03-05 06:00 | NUR ---
PATIENT RESTING IN BED WITH EYES CLOSED. RESPIRATIONS EVEN AND UNLABORED. IV ABX HUNG. IV SITES REMAIN WNL. CALL LIGHT WITHIN REACH.
--- NOTE | 2024-03-05 06:27 | NUR ---
POTASSIUM REPLACEMENT PROTOCOL UTILIZED THIS AM. ORDER ENTERED FOR 20MEQ OF PO POTASSIUM X 1.
[2024-03-05] MEDS ORDERED: POTASSIUM CHLORIDE 10 MEQ TABCR PO ONE ×2 (06:30→09:00)
--- NOTE | 2024-03-05 06:40 | NUR ---
CALL LIGHT ANSWERED. PATIENT UP TO BATHROOM TO VOID. VOIDING QUANITY SUFFICIENT. DENIES ANY PAIN OR DISCOMFORT. NOTED DRY COUGH. NO FURTHER NEEDS CALL LIGHT WITHIN REACH.
--- NOTE | 2024-03-05 06:58 | NUR ---
CALL LIGHT ANSWERED PATIENT WITH ONE EPISODE OF EMESIS. POTASSIUM PILLS VISABLE IN EMESIS. POTASSIUM WILL BE REORDERED TO BE ADMINSTERED AFTER BREAKFAST.
[2024-03-05] MEDS ORDERED: METOCLOPRAMIDE HCL 10 MG/2 ML SDV IV PRN (07:30)
[2024-03-05] MEDS ORDERED: METOCLOPRAMIDE HCL 10 MG/2 ML SDV IV SCH (08:00)
--- NOTE | 2024-03-05 08:00 | NUR ---
PT AWAKE IN BED WATCHING TV. PT AAOX4, PT STATED THAT SHE FEELS BETTER THIS MORNING SO FAR AND IS CURRENTLY NOT HAVING ANY NAUSEA. PT FELT FETUS KICK USUAL LAST NIGHT AND THIS MORNIGN SO FAR. ALL LOBES CLEAR, ABD SOUNDS ARE HYPOACTIVE. S1 AND S2 HEARD. PT HAS +1 PITTING EDEMA IN BILATERAL LOWER LEGS WHICH IS A NEW FINGING THIS MORNING PER RN WHO TOOK CARE OF THIS PT YESTERDAY. PT TO EAR BREAKFAST NOW. NO INSULIN WAS NEEDED. BECKAG WDL.
--- NOTE | 2024-03-05 09:00 | NUR ---
PT IN ROOM EATING BREAKFAST STILL. MEDS TO BE GIVEN SHORTLY. PT WALKED TO TOILET AND HR WAS UP TO UPPER 120'S. PT DENIED ANY SOB AND OR DIZZINESS. PT DOES NOT WANT TO SHOWER TODAY BUT WILL BRUSH HER TEETH IN THE BATHROOM AFTER SHE IS FINISHED WITH BREAKFAST. PT WILL ALSO WALK AFTER BREAKFAST. AT THIS TIME NO NEW CONCERNS HAVE BEEN NOTED. WILL CONTINUE TO MONITOR.
--- NOTE | 2024-03-05 10:00 | NUR ---
PT FINISHED ABOUT 70% OF HER BREAKFAST. PT DENIES NAUSEA AT THIS TIME AND PT WAS ABLE TO KEEP K+ DOWN. PT CURRENTLY IN BATHROOM BRUSHING HER TEETH AND WASHING UP. HR IN THE UPPER 130'S. WILL CONTINUE TO MONITOR.
--- NOTE | 2024-03-05 10:30 | NUR ---
PT NOT AVAILABLE FOR VISIT. PROVIDED PRAYER.
--- NOTE | 2024-03-05 11:00 | NUR ---
PT WALKED IN THE HALLWAYS FOR ABOUT 10MIN. PT NOW BACK IN ROOM. PT STATED THAT SHE WAS NOT SHORT OF BREATH YESTERDAY WHEN WALKING. PT DENIES ANY OTHER COMPLAINTS FROM WALKING AND IN GENERAL AT THIS TIME. SPOUSE DID WALK WITH PT. PITTING EDEMA +1 IS UNCHANGED AFTER WALKING. PT IS BACK ON SCD'S. HR SINCE PT IS IN BED HAS SETTLED TO THE 90'S. V/S WDL OVERALL.
--- NOTE | 2024-03-05 11:56 | EKG ---
[facility] [address] [facility] [place] [address] Signed Sinus tachycardia Nonspecific T wave abnormality Abnormal ECG When compared with ECG of 01-MAR-2024 11:57, Nonspecific T wave abnormality now evident in Anterior leads Confirmed by Skip Sousa MD ([id number]) on 03/05/2024 11:56:39 AM Electronically Signed By: SKIP SOUSA DO 03/05/24 1156 PATIENT NAME: LAURAVALENTINAKYMBERLY Electrocardiogram DATE OF : [birth year] PHYSICIAN: SKIP SOUSA DO REPORT #: [id number] REPORT IS CONFIDENTIAL AND NOT TO BE RELEASED WITHOUT AUTHORIZATION
--- NOTE | 2024-03-05 12:00 | NUR ---
PT AAOX4, BILATERAL PITTING EDEMA IN LOWER LEGS REMAINS AT +1. NO INSULIN NEEDED FOR BLOOD SUGAR CONTROL, CBG 100. PT IS EATING LUNCH NOW. PO INTAKE IS GOOD, URINE OUTPUT IS GOOD. PT DENIES ANY NAUSEA AT THIS TIME AND HAS NO OTHER AND OR NEW COMPLAINTS.
--- NOTE | 2024-03-05 13:05 | NUR ---
PT STILL EATING HER LUNCH. AT THIS TIME PT IS UP TO TOILET. NO NEW CONCERNS NOTED AT THIS TIME.
[2024-03-05] MEDS ORDERED: CEFAZOLIN SODIUM 1 GM/10 ML SYR IV SCH (14:00)
--- NOTE | 2024-03-05 14:00 | NUR ---
PT IN ROOM. NO NEW CONCERNS NOTED. PT TO TRANSFER TO [place] THIS AFTERNOON AT SOME POINT.
--- NOTE | 2024-03-05 14:49 | NUR ---
THE DISCHARGE PLANNERS ARE MONITORING THE PATIENT'S DISCHARGE NEEDS. THE PATIENT MAY GO HOME TOMORROW ON ORAL ABX. THE PATIENT WILL GO HOME IF THE PATIENT STAYS MEDICALLY STABLE AND MD GIVES THE ORDER.
--- NOTE | 2024-03-05 15:20 | NUR ---
REPORT RECEIVED FROM JOHNNY ALBA IN CCU.
--- NOTE | 2024-03-05 15:35 | NUR ---
REPORT WAS GIVEN TO LEO AT BEDSIDE IN ROOM 8 ON MS. PT WALKED TO ROOM.
--- NOTE | 2024-03-05 16:08 | NUR ---
PATIENT IS LYING IN BED WITH HOB ELEVATED. PATIENT IS ALERT AND ORIENTED TIMES FOUR. PATIENT IS ON ROOM AIR AND LUNG SOUNDS ARE CLEAR BILATERALLY. PATIENT IS ON TELEMETRY NUMBER 6. HR IS 96. CARDIAC AUSCULTATION WITH NORMAL S1 AND S2. SCDS IN PLACE. PATIENT WITH 1+ PITTING EDEMA IN BILATERAL LOWER EXTREMITIES. RADIAL PULSES ARE STRONG. SENSATION INTACT WITH NO COMPLAINTS OF NUMBNESS AND TINGLING. PATIENT IS ON A 60 GRAM CARB DIET WITH A POOR APPETITE. BOWEL TONES ARE ACTIVE IN ALL FOUR QUADRANTS. LAST BM WAS 03/04/24. PATIENT WITH NO NAUSEA OR PAIN. SKIN INTACT. IV IN RIGHT WRIST FLUSHED WITH 10 ML NORMAL SALINE. LR IS INFUSING AT 100 ML/HR. IV DRESSING IS CLEAN, DRY, AND INTACT. IV IN THE LAC FLUSHED WITH 10 ML NORMAL SALINE AND IS SALINE LOCKED. IV DRESSING IS CLEAN, DRY, AND INTACT. PATIENT GIVEN FRESH ICE WATER. PATIENT STATED NO FURTHER NEEDS AT THIS TIME. CALL LIGHT AND PERSONAL BELONGINGS ARE WITHIN REACH.
--- NOTE | 2024-03-05 19:27 | NUR ---
MD NOTIFIED OF PT EMESIS THIS EVENING AFTER DINNER. PT REPORTS INCREASE PRESSURE IN STOMACH AFTER EATING, WITH RELIEF AFTER EMESIS. PT ALSO REPORTS INCREASED PAIN IN RIGHT FLANK. SCHEDULED ZOFRAN AND TYLENOL ADMINISTERED PRIOR TO REPORTS OF COMPLAINTS. NO NEW ORDERS RECEIVED. PRIMARY NIGHT RN UPDATED, TO GIVE SCHEDULED REGLAN DUE AT 1999 NOW. ICE AND HEAT OFFERED FOR FLANK PAIN.
--- NOTE | 2024-03-05 19:34 | NUR ---
RECEIVED REPORT FROM DAY SHIFT RN. PATIENT GIVEN SCHEDULED NAUSEA MEDICATION EARLY PER MD. PATIENT PROVIDED ICE PACK FOR BACK PER REQUEST. PATIENT DENIES ANY FURTHER NEEDS. CALL LIGHT IN REACH. IV INFUSING PER ORDER.
--- NOTE | 2024-03-05 21:30 | NUR ---
PATIENTS VITALS TAKEN AND RECORDED. INTAKE AND OUTPUT RECORDED. PATIENT UP TO BR A SBA. PATIENT ABLE TO VOID. PATIENT IS BACK IN BED RESTING. IV INFUSING PER ORDER. PATIENT DENIES ANY [AIN OR NAUSEA. PM MEDS GIVEN PER ORDER. PATIENT ASSESMENT COMPLETED. PATIENT DENIES ANY NEEDS. CALL LIGHT IN REACH.
--- NOTE | 2024-03-05 22:18 | NUR ---
PATIENT IS RESTING IN BED WITH EYES CLSOED, RR 16. CALL LIGHT IN REACH. NAD NOTED.
--- NOTE | 2024-03-06 00:28 | NUR ---
PATIENT IS RESTING IN BED WITH EYES CLOSED, RR15. CALL LIGHT IN REACH. IV INFUSING PER ORDER.
--- NOTE | 2024-03-06 01:14 | NUR ---
PATIENT UP TO BR. PATIENT ABLE TO VOID. PATIENT IS BACK IN BED RESTING. PATIENT REPORTS 5/10 PAIN IN LLE, PRN MEDICATION GIVEN PER ORDER. PATIENT GIVEN PRN SLEEP AID PER REQUEST. PATIENT PROVIDED FRESH ICE WATER. PATIENT IS IN BED RESTING BILAT LOW EXT ELEVATED. SCHECDULED ABX INFUSING PER ORDER. PATIENT DENIES ANY FURTHER NEEDS. CALL LIGHT IN REACH.
[2024-03-06 01:49] VITALS: BP 114/67
--- NOTE | 2024-03-06 01:56 | NUR ---
PATIENT IS RESTING IN BED. PATIENTS VITALS TAKEN AND RECORDED. INTAKE AND OUTPUT RECORDED. PATIENT DENIES ANY PAIN OR NAUSEA. SCHEDULED MEDICATIONS GIVEN PER ORDER. PATIENTTS IV INFUSING PER ORDER. FBC RN PRESENT IN ROOM TO COMPLETE NST. PATIENT DENIES ANY FURTHER NEEDS. CALL LIGHT IN REACH.
--- NOTE | 2024-03-06 04:00 | NUR ---
PATIENT UP TO BR. PATIENT ABLE TO VOID. PATIENT IS BACK IN BED RESTING. NO FURTHER NEEDS NOTED. CALL LIGHT IN REACH.
[2024-03-06 05:01] VITALS: BP 116/67
--- NOTE | 2024-03-06 05:16 | NUR ---
LAB IN ROOM. PATIENTS VITALS TAKEN AND RECORDED. INTAKE AND OUTPUT RECORDED. PATIENT DENIES ANY PAIN OR NAUSEA. AM MEDS GIVEN PER ORDER. PATIENTS IV INFUSING PER ORDER. PATIENT DENIES ANY FURTHER NEEDS. CALL LIGHT IN REACH.
[2024-03-06 05:17] LABS: ANION GAP 12.7 (7-21); BUN/CREATININE RATIO 4.4 (6.0-28.6); CALCIUM 8.1 mg/dL (8.5-10.1); CREATININE, SERUM 1.59 mg/dL (0.55-1.02); POTASSIUM 3.7 mmol/L (3.5-5.1)
[2024-03-06 05:55] LABS: BASOPHILS 0.4 % (0-2); EOSINOPHILS 0.6 % (0-6); HEMATOCRIT 25.9 % (35.0-50.0); LYMPHOCYTES 19.1 % (24-44); MCH 28.5 (27-36); MCHC 34.7 g/dl (30-36); MCV 82.1 fl (81-99); MONOCYTES 8.2 % (0-12); NEUTROPHILS 71.7 % (39-80); PLATELET COUNT 450 K/uL (140-440); RBC 3.15 M/ul (4.3-5.7); RDW 14.1 (10.5-15.0)
--- NOTE | 2024-03-06 07:15 | NUR ---
REPORT RECEIVED FROM OVEN ROASTER RN ABRAM. PATIENT IS LYING IN BED WITH EYES CLOSED AND RESPIRATIONS ARE EVEN AND UNLABORED. CALL LIGHT AND PERSONAL BELONGINGS ARE WITHIN REACH.
--- NOTE | 2024-03-06 08:10 | NUR ---
PATIENT IN BED AT THIS TIME. [place] INFORMATION CLERK TOOK PATIENTS BLOODSUGAR AND ASSISTED PATIENT TO BATHROOM. CALL LIGHT WITHIN REACH, NO FURTHER NEEDS AT THIS TIME.
--- NOTE | 2024-03-06 08:58 | NUR ---
PATIENT IN BED AT THIS TIME. RIGHT OF WAY MANAGER ASSISTED PATIENT TO BATHROOM. CALL LIGHT WITHIN REACH, NO FURTHER NEEDS AT THIS TIME.
--- NOTE | 2024-03-06 09:15 | NUR ---
ROUNDED WITH THE PATIENT AT THIS TIME. STATED NO NST PRIOR TO DISCHARGE. FULL ASSESSMENT COMPLETE AND DOCUMENTED IN THE CHART. PATIENT IS ALERT AND ORIENTED TIMES FOUR. PATIENT IS ON ROOM AIR AND LUNG SOUNDS ARE CLEAR BILATERALLY IN ALL LUNG LESTER BILATERALLY. PATIENT IS ON TELEMETRY NUMBER 6 AND IS IN NORMAL SINUS RHYTHM. CARDIAC WITH NORMAL S1 AND S2 ON AUSCULTATION. PATIENT DOES GET TACHYCARDIC WITH ACTIVITY. PATIENT WITH SCDS IN THE ROOM AT THIS TIME. BLE WITH 1+ PITTING EDEMA. PATIENT STATED THE SWELLING HAS GOTTEN BETTER. PATIENT IS ON A 60 GRAM DIET AND BOWEL TONES ARE ACTIVE IN ALL FOUR QUADRANTS. PATIENT WITH A POOR APPETITE. LAST BM WAS 03/05/24. PATIENT WITH NO COMPLAINTS OF PAIN OR NAUSEA. SENSATION INTACT WITH NO COMPLAINTS OF NUMBNESS AND TINGLING. SKIN INTACT. IV IN THE LAC FLUSHED WITH 10 ML NORMAL SALINE THIS MORNING DURING MED PASS. IV IS SALINE LOCKED AND THE DRESSING IS CLEAN, DRY, AND INTACT. IV IN THE RIGHT WRIST WITH LR INFUSING AT 100 ML/HR. IV DRESSING IS CLEAN, DRY, AND INTACT. PATIENT WITH BREAKFAST TRAY AT THE BEDSIDE. PATIENT STATED NO FURTHER NEEDS AT THIS TIME. CALL LIGHT AND PERSONAL BELONGINGS ARE WITHIN REACH.
[2024-03-06] MEDS ORDERED: CEPHALEXIN500 MG PO ×2 (09:58→09:59)
[2024-03-06] MEDS ORDERED: REGLAN10 MG PO (10:00)
[2024-03-06 10:17] VITALS: BP 117/58
[2024-03-06 10:28] VITALS: BP 117/58
--- NOTE | 2024-03-06 11:02 | NUR ---
PATIENT IN BED AT THIS TIME. APIGEE DEVELOPER CHARTED VITALS AND I&O'S. CALL LIGHT WITHIN REACH, NO FURTHER NEEDS AT THIS TIME.
[2024-03-06] MEDS ORDERED: METOCLOPRAMIDE HCL 10 MG/2 ML SDV IV SCH (14:00)
== END 2024-03-06 11:00 | disposition home or self-care (01) | DRG 831 ==
LOC: FBCO 11:40 → CCU 11:41 → MS 03-05 15:35
PROVIDERS: Student in an Organized Health Care Education/Training Program; ADMIT Obstetrics & Gynecology; ATTEND Obstetrics & Gynecology
DX: O23.03 Infections of kidney in pregnancy, third trimester (principal); N15.1 Renal and perinephric abscess; E87.1 Hypo-osmolality and hyponatremia; N17.9 Acute kidney failure, unspecified; O99.113 Other diseases of the blood and blood-forming organs and certain disorders involving the immune mechanism complicating pregnancy, third trimester; B96.20 Unspecified Escherichia coli [E. coli] as the cause of diseases classified elsewhere; Z3A.30 30 weeks gestation of pregnancy; O99.013 Anemia complicating pregnancy, third trimester; D50.9 Iron deficiency anemia, unspecified; N18.9 Chronic kidney disease, unspecified; O99.891 Other specified diseases and conditions complicating pregnancy; E86.0 Dehydration; O99.283 Endocrine, nutritional and metabolic diseases complicating pregnancy, third trimester; E87.6 Hypokalemia; D75.839 Thrombocytosis, unspecified; O99.213 Obesity complicating pregnancy, third trimester; E80.6 Other disorders of bilirubin metabolism; E83.42 Hypomagnesemia
CPT/HCPCS: 36415; 36592; 59025; 71046; 76700; 76770; 76815; 80048; 80053; 80202; 81001; 83036; 83605; 83735; 85007; 85025; 85060; 87040; 87077; 87088; 87186; 87502; 93005; 93010; 96366; 96367; 96375; 96376; A9270; G0378; G0463; J0690; J2405; J2543; J2765; J3370; J3475; J3480; J3490; J7040; J7060; J7121; U0002

== ENCOUNTER 2024-05-18 00:01 | Inpatient (IN) | payer OTHER ==
[~2024-05-18] VITALS: Ht 157.5 cm; Wt 93.9 kg
[~2024-05-18 00:01] MED LIST: CEPHALEXIN500 MG PO; HUMULIN N100 UNIT/1 SUB-Q; ONDANSETRON ODT8 MG SL; PEPCID AC20 MG PO; REGLAN10 MG PO
[2024-05-18] MEDS ORDERED: LACTATED RINGER'S 1,000 ML IV PRN (00:15)
[2024-05-18] MEDS ORDERED: MAGNESIUM HYDROXIDE/AL HYDROX 30 ML CUP PO PRN (00:15)
[2024-05-18] MEDS ORDERED: CALCIUM CARBONATE 500 MG CHEW PO PRN (00:15)
[2024-05-18] MEDS ORDERED: miSOPROStoL 25 MCG TAB PV SCH (00:30)
[2024-05-18 00:43] LABS: HEMATOCRIT 36.7 % (35.0-50.0); HEMOGLOBIN 12.7 g/dL (12.0-18.0); MCH 30.1 (27-36); MCHC 34.7 g/dl (30-36); MCV 86.7 fl (81-99); RBC 4.23 M/ul (4.3-5.7); RDW 15.9 (10.5-15.0)
[2024-05-18 00:44] LABS: AMPHETAMINES, URINE NEGATIVE (NEGATIVE); BARBITURATES, URINE NEGATIVE (NEGATIVE); BENZODIAZEPINE, URINE NEGATIVE (NEGATIVE); BUPRENORPHINE, URINE NEGATIVE (NEGATIVE); CANNABINOID, URINE NEGATIVE (NEGATIVE); COCAINE, URINE NEGATIVE (NEGATIVE); ECSTASY, URINE NEGATIVE (NEGATIVE); FENTANYL, URINE NEGATIVE (NEGATIVE); METHADONE, URINE NEGATIVE (NEGATIVE); OPIATES, URINE NEGATIVE (NEGATIVE); OXYCODONE, URINE NEGATIVE (NEGATIVE); PHENCYCLIDINE, URINE NEGATIVE (NEGATIVE)
[2024-05-18 00:52] VITALS: BP 123/75
[2024-05-18 01:20] LABS: ABO O; RH POSITIVE
[2024-05-18 01:21] LABS: ANTIBODY SCREEN NEGATIVE
[2024-05-18] MEDS ORDERED: TERBUTALINE SULFATE 1 MG/ML AMP SUB-Q ONE ×3 (06:00→22:30)
[2024-05-18] MEDS ORDERED: OXYTOCIN/DEXTROSE 5% 20 UNITS/100 ML BAG IV SCH (12:00)
[2024-05-18] MEDS ORDERED: fentaNYL citrate 100 MCG/2 ML VIAL ONE (17:37)
[2024-05-18] MEDS ORDERED: ROPIVACAINE 0.2% 200 ML BAG ONE (17:37)
[2024-05-18] MEDS ORDERED: ROPIVACAINE 0.2% 200 ML BAG EPIDURAL SCH (18:15)
[2024-05-18] MEDS ORDERED: ePHEDrine sulfate 5 MG/ML SYRINGE IV PRN (18:15)
[2024-05-18] MEDS ORDERED: LACTATED RINGER'S 2,000 ML IV ONE (18:15)
[2024-05-18] MEDS ORDERED: OXYTOCIN/0.9 % SODIUM CHLORIDE 500 ML IV SCH (18:15)
[2024-05-18] MEDS ORDERED: LACTATED RINGER'S 500 ML IV PRN (18:15)
[2024-05-19] MEDS ORDERED: AZITHROMYCIN 500 MG in DEXTROSE 5% 250 ML IV ONE
[2024-05-19] MEDS ORDERED: AZITHROMYCIN/DEXTROSE 500 MG/250 ML PIGGYBACK ONE (00:02)
[2024-05-19] MEDS ORDERED: LIDOCAINE 2% W/ EPI 1:200,000 20 ML SDV ONE (00:05)
[2024-05-19] MEDS ORDERED: ondansetron HCL 4 MG/2 ML VIAL ONE (00:05)
[2024-05-19] MEDS ORDERED: OXYTOCIN 10 UNITS/ML VIAL ONE (00:05)
[2024-05-19] MEDS ORDERED: fentaNYL citrate 100 MCG/2 ML VIAL ONE (00:06)
--- NOTE | 2024-05-19 00:10 | PR ---
[facility] [address] [place], [place] [address] Signed Progress Notes IP Datetime Report Generated by BA: 05/19/2024 00:10 PROGRESS NOTES: [id number] Impression: Arrest of Dilatation/Descent; Non-reassuring Heart Rate Procedures: Intrauterine Pressure Catheter; Scalp Electrode; Sterile Vag Exam; Epidural Placement; Amnio Infusion Plan: Anesthesia Consult; Deliver- Section Informed Consent Obtain: Section Delivery; Risks, Benefits and Alternatives Discussed VITAL SIGNS: [id number] Vital Signs: Reviewed; Within Normal Limits EXAM: [id number] Dilatation: 5.0 Effacement: 90 Station: 0 Contractions: q1-4min MEMBRANES: [id number] Pooling: Negative Membranes Status: Ruptured Comments: Patient is a 28y/o at 41w3d who has been being induced for the last 24 hours for post dates. She received 3 total doses of vaginal Cytotec. Pitocin has not been started since FHT have been on and off category II with recurrent episodes of late decelerations. Now, FHT are again showing recurrent late decelerations despite IV fluids, position changes, IUPC, amnioinfusion, and terbutaline x 3. Recommendation at this time is for an expedited delivery via section 2/2 failure to dilate and intolerance of labor. Reviewed all R/B/A/I in great detail and consents signed. FETUS A: [id number] FHR Baseline: 140 Variability: Moderate 6-25bpm Accelerations: 15X15 Decelerations: Late FHR Category: Category II Presentation: Vertex Comments on Fetus A: Category I and reassuring FETUS B: [id number] Signing Physician: Austin Keita DO *Electronically Signed* 05/19/24 0010 AUSTIN KEITA) DO PATIENT NAME: KYMBERLY BELTRAN PROGRESS NOTE DATE OF : [birth year] PHYSICIAN: AUSTIN KEITA (JD) DO RPT #: [id number] REPORT IS CONFIDENTIAL AND NOT TO BE RELEASED WITHOUT AUTHORIZATION [address] [place], [place] [address] Signed Copies: ~ *Electronically Signed* 05/19/249 AUSTIN KEITA) DO PATIENT NAME: KYMBERLY BELTRAN PROGRESS NOTE DATE OF : [birth year] PHYSICIAN: AUSTIN KEITA (JD) DO RPT #: [id number] REPORT IS CONFIDENTIAL AND NOT TO BE RELEASED WITHOUT AUTHORIZATION
[2024-05-19] MEDS ORDERED: LIDOCAINE HCL 2% 5 ML SDV ONE (00:22)
[2024-05-19] MEDS ORDERED: PHENYLEPHRINE HCL 10 MG/ML VIAL ONE (00:33)
[2024-05-19] MEDS ORDERED: DEXAMETHASONE SOD PHOS 4 MG/ML VIAL ONE (00:44)
[2024-05-19] MEDS ORDERED: SODIUM CHLORIDE 0.9% 20 ML IV ONE ×2 (00:44→05:30)
[2024-05-19] MEDS ORDERED: Ropivacaine HCl 0.5% 30 ML VIAL ONE (00:44)
[2024-05-19] MEDS ORDERED: SENNOSIDES/DOCUSATE 1 EA TAB PO SCH (01:12)
[2024-05-19] MEDS ORDERED: OXYCODONE/APAP 5/325 TAB PO PRN (01:15)
[2024-05-19] MEDS ORDERED: LIDOCAINE 2% VISCOUS 6 ML SYR TOP ONE (01:15)
[2024-05-19] MEDS ORDERED: METOCLOPRAMIDE HCL 10 MG/2 ML SDV IV PRN (01:15)
[2024-05-19] MEDS ORDERED: OXYCODONE HCL 5 MG TAB PO PRN (01:15)
[2024-05-19] MEDS ORDERED: bisacodyL 10 MG SUPP PR PRN (01:15)
[2024-05-19] MEDS ORDERED: HYDROCODONE/ACETA 5/325 TAB PO PRN (01:15)
[2024-05-19] MEDS ORDERED: PROMETHAZINE HCL 25 MG SUPP PR PRN (01:15)
[2024-05-19] MEDS ORDERED: OXYTOCIN/0.9 % SODIUM CHLORIDE 500 ML IV SCH (01:15)
[2024-05-19] MEDS ORDERED: ondansetron HCL 4 MG/2 ML VIAL IV PRN ×2 (01:15→01:30)
[2024-05-19] MEDS ORDERED: PROCHLORPERAZINE EDISYLATE 10 MG/2 ML VIAL IV PRN ×2 (01:15→01:30)
[2024-05-19] MEDS ORDERED: PROMETHAZINE HCL 25 MG TAB PO PRN (01:15)
[2024-05-19] MEDS ORDERED: LACTATED RINGER'S 1,000 ML IV SCH (01:16)
[2024-05-19] MEDS ORDERED: diphenhydrAMINE HCL 50 MG/ML VIAL IV PRN (01:30)
[2024-05-19] MEDS ORDERED: NALOXONE HCL 0.4 MG SYR IV PRN (01:30)
[2024-05-19] MEDS ORDERED: HYDROmorphone HCL 1 MG/ML SYR IV PRN (01:30)
[2024-05-19] MEDS ORDERED: KETOROLAC TROMETHAMINE 30 MG/ML VIAL IV PRN (01:30)
[2024-05-19 01:34] VITALS: BP 110/57
--- NOTE | 2024-05-19 01:48 | NUR ---
05/19/24 0148 HARDIK SYLVESTER 0117 PT ARRIVED TO PACU IN [facility] ROOM 105 VIA STREACHER. PT SITTING IN SEMI FOWLERS, AWAKE AND ON ROOM AIR. BREATHING EQUAL AND UNLABORED. PT FAMILY IS IN ROOM WITH BABY. PT ATTACHED TO ALL MONITORS. PT REPORTS NO PAIN OR NAUSEA AT THIS TIME. PT HAS IV IN R HAND RUNNING LR AND 20 UNITS OF PITOCIN. REPORT TAKEN FROM BRENDEN MACEDO. 0125 PT SITTING UPRIGHT WITH BABY AT BREAST AND [facility] RN ASSISTING IN LAST. PT REPORTS NO PAIN OR NAUSEA AT THIS TIME. 0135 REPORT GIVEN TO [facility] RN, CARE TRANSFERRED AT THIS TIME. PT SITTING UPRIGHT IN BED WITH BABY AT BREAST. LR WITH 20 UNITS OF PITOCIN RUNNING INTO IV IN RIGHT HAND. CHAPMAN IN PLACE AND DRAINING. PT BREATHING EQUAL AND UNLABORED. NO PAIN OR NAUSEA AT THIS TIME. EPIDURAL LEFT IN PLACE PER BRENDEN MACEDO CRNA REPORTS HE WILL CHECK IN AT 0630 ON PT AND REMOVED EPIDURAL IF NO LONGER NEEDED. PT AND FAMILY HAVE NO QUESTIONS AT THIS TIME. BED LOW AND LOCKED, CALL LIGHT WITHIN REACH.
[2024-05-19] MEDS ORDERED: KETOROLAC TROMETHAMINE 30 MG/ML VIAL IV SCH ×2 (02:00→23:00)
[2024-05-19] MEDS ORDERED: MORPHINE SULFATE 1 MG/ML VIAL ONE (05:30)
[2024-05-19] MEDS ORDERED: SIMETHICONE 125 MG TABLET CHEWABLE PO SCH (07:00)
[2024-05-20] MEDS ORDERED: IBUPROFEN 600 MG TAB PO SCH ×2 (02:00→12:00)
--- NOTE | 2024-05-20 02:50 | OR ---
[facility] [address] [place] [id number] Signed DATE OF OPERATION: 05/19/2024 SURGEON: Blaire Olsen MD PREOPERATIVE DIAGNOSES: 1. Full-term intrauterine . 2. Failure to dilate. 3. Nonreassuring heart tone. 4. intolerance of labor. POSTOPERATIVE DIAGNOSES: 1. Full-term intrauterine . 2. Failure to dilate. 3. Nonreassuring heart tone. 4. intolerance of labor. PROCEDURE PERFORMED: Primary low-transverse section via Pfannenstiel skin incision. ANESTHESIA: Epidural. ESTIMATED BLOOD LOSS: 200 mL. IV FLUIDS: Please see Anesthesia note. URINE OUTPUT: Please see Anesthesia note. SPECIMEN: None. COMPLICATIONS: None. FINDINGS: Viable male infant in vertex presentation. Apgars 7 and 9. Weight pending. Tight nuchal cord x3 and as well as the body cord x1, baby in direct occiput posterior Electronically Signed By: BLAIRE OSLEN MD 05/20/24 0250 PATIENT NAME: KYMBERLY BELTRAN OPERATIVE REPORT DATE OF : [birth year] REPORT #: [id number] PHYSICIAN: BLAIRE OLSEN MD PCP: NO PRIMARY CARE PHYSICIAN REPORT IS CONFIDENTIAL AND NOT TO BE RELEASED WITHOUT AUTHORIZATION [facility] [address] [place] [id number] Signed position. INDICATION AND CONSENT: The patient is a 28-year-old G1, P0, who presented for an induction and labor at 41 weeks and today is secondary to post dates . Her induction was started with vaginal Cytotec x3. She received an epidural at 4 cm dilation. The baby's heart tones were noted to have persistent late decelerations with slow return to baseline. That is and the incision position changes, IUPC, scalp electrode and x3 was utilized. However, the baby continued with contraction to have a late deceleration with a slow return to baseline. Recommendation at that point was for a primary section secondary to intolerance of labor. The patient agreed with this assessment and plan. All risks, benefits, and alternatives and indications are discussed with the patient in great detail including the risk of bleeding, infection, and damage to surrounding structures, risks of requiring future restorative operations and a rare risk injury or . The patient was also consented for the possibility of blood transfusion with those inherent risks as well. All consents were reviewed in detail and signed. PROCEDURE IN DETAIL: The patient was taken to the operating room with IV fluids running and pneumatic compression stockings applied to the lower extremities. Epidural anesthesia was found to be adequate. 2 g of Ancef were given for infection prophylaxis as well as 500 mg of IV azithromycin. The patient was prepped and draped in dorsal supine position with the leftwards tilt and a Ann catheter had been previously inserted and clear urine was noted. A Pfannenstiel skin incision was made was made with a scalpel. The incision was carried down to the fascia sharply. The fascia was incised and extended laterally. The inferior aspect of the fascia was grasped with Reyna clamps and elevated. The underlying pyramidalis was dissected out with Bonilla scissors. In a similar fashion, superior aspect of the fascia was elevated with a Reyna clamp and rectus muscles were dissected out. Hemostasis was achieved with Bovie. The rectus muscle was and then went down to the level of the pubic symphysis. Preperitoneal fatty tissue was bluntly dissected to expose the peritoneum. The peritoneum was entered bluntly. The peritoneal incision was extended superiorly and inferiorly with the bladder reflection with good visualization of the bladder. The Scooby retractor was applied for good visualization of the uterus and the bladder and intraabdominal survey revealed scant clear intraperitoneal fluid and a thinned out lower uterine segment. The bladder was cut out at the operative field using an Scooby retractor. The rest of the uterine peritoneum was opened with Metzenbaum scissors and the bladder flap was developed. The kept in place and the bladder was out of the operative field below the Electronically Signed By: BLAIRE OLSEN MD 05/20/24 0250 PATIENT NAME: KYMBERLY BELTRAN OPERATIVE REPORT DATE OF : [birth year] REPORT #: [id number] PHYSICIAN: BLAIRE OLSEN MD PCP: NO PRIMARY CARE PHYSICIAN REPORT IS CONFIDENTIAL AND NOT TO BE RELEASED WITHOUT AUTHORIZATION [facility] [address] [place], [place] [address] Signed uterine segment was incised with scalpel and clear fluid was noted. The uterine incision was extended bluntly and went lateral in upper traction. The fetus was in cephalic occiput posterior presentation with a tight double nuchal cord and body cord. The head was elevated out of the pelvis with special attention paid to avoid using the uterine incision as a fulcrum. Gentle fundal pressure was applied once the head was brought into the intrauterine incision. The baby was delivered without difficulty. The mouth and nose were suctioned with a ball. The cord was clamped and cut after a brief moment of delayed cord clamping. The was handed off to the millwork estimator. IV oxytocin was initiated to facilitate the uterine contracture. The placenta was delivered intact with manual massage to the uterine fundus. The uterus was then exteriorized, inside of the uterus was gently wiped with a lap sponge and no placental membranes were noted. The uterine incision was closed with an 0 Monocryl suture in a running locking fashion. A second stitch of 0 Monocryl was utilized for imbrication of the incision. The ovaries and tubes were found to be normal. The uterus, tubes, and ovaries were returned to the abdominal cavity. The blood clots and fluids were wiped out of the abdomen and pelvis with moist laparotomy sponges. The uterine incision was reinspected and good hemostasis was noted. The rectus muscle was reapproximated with 3-0 Vicryl in an interrupted fashion. A small area of bleeding was noted on the right rectus muscle, this area was suture ligated with 3-0 Vicryl [id number] stitch. The fascial layer was closed with an 0 Vicryl stitch in a running fashion, subdermal layer was closed with a 3-0 Vicryl stitch in an interrupted fashion. The skin was a closed with a 4-0 Monocryl suture in a subcuticular fashion with Dermabond. The patient tolerated the procedure well with counts correct x2. The patient was taken to the recovery room in stable condition. Blaire Olsen MD /MODL /[id number] Copies: ~ Electronically Signed By: BLAIRE OLSEN MD 05/20/24 0250 PATIENT NAME: KYMBERLY BELTRAN OPERATIVE REPORT DATE OF : [birth year] REPORT #: [id number] PHYSICIAN: BLAIRE OLSEN MD PCP: NO PRIMARY CARE PHYSICIAN REPORT IS CONFIDENTIAL AND NOT TO BE RELEASED WITHOUT AUTHORIZATION
[2024-05-20] MEDS ORDERED: KETOROLAC TROMETHAMINE 30 MG/ML VIAL ONE (05:22)
[2024-05-20 06:15] LABS: HEMATOCRIT 32.5 % (35.0-50.0); MCH 30.1 (27-36); MCHC 33.9 g/dl (30-36); MCV 88.8 fl (81-99); RBC 3.67 M/ul (4.3-5.7); RDW 15.9 (10.5-15.0)
== END 2024-05-20 11:10 | disposition home or self-care (01) | DRG 788 ==
LOC: FBC 00:01
PROVIDERS: ADMIT Student in an Organized Health Care Education/Training Program; ATTEND Student in an Organized Health Care Education/Training Program
PROC: 10H07YZ Insertion of Other Device into Products of Conception, Via Natural or Artificial Opening (ICD-10-PCS; 2024-05-19)
PROC: 10D00Z1 Extraction of Products of Conception, Low, Open Approach (ICD-10-PCS; principal; 2024-05-19 00:10)
DX: O48.0 Post-term pregnancy (principal); O76 Abnormality in fetal heart rate and rhythm complicating labor and delivery; Z3A.41 41 weeks gestation of pregnancy; Z37.0 Single live birth; O69.81X0 Labor and delivery complicated by cord around neck, without compression, not applicable or unspecified
CPT/HCPCS: 01961; 36415; 80307; 82803; 85027; 86850; 86900; 86901; A9270; J1100; J1885; J2003; J2274; J2371; J2405; J2590; J2795; J3010; J3105; J7121